=== PATIENT | male | born 1995 | race Hispanic/Latino ===

== ENCOUNTER 2018-06-29 12:25 | Emergency (ER) | payer SELFPAY ==
[2018-06-29 13:25] LABS: Bilirubin Negative (Negative); Blood, Urine Negative (Negative); Clarity CLEAR (Clear); Glucose, Urine (Dipstick) Negative (Negative); Leukocyte Negative (Negative); Nitrite Negative (Negative); Protein, Urine (Dipstick) Negative (Neg-Trace)
--- NOTE | 2018-06-29 13:40 | ULT ---
Testicular ultrasound INDICATION: Bilateral testicular pain TECHNIQUE: Grayscale, color Doppler spectral Doppler images were obtained of the scrotum. COMPARISON: None. FINDINGS: Right testicle: The right testicle measured 3.1 x 4.4 x 2.0cm. There is normal vascular flow to the r ight testicle No right-sided hydrocele is evident there is a 2 mm right epididymal head cyst. Left testicle: The left testicle measured 3.0 x 4.2 x 2.0cm. There is normal vascular flow to left te sticle. No left sided hydrocele seen. The left epididymis appears within normal limits. Additional findings: None. Impression: 1. No intratesticular mass or torsion demonstrated. 2. Small right epididymal head cyst.
[2018-06-30 20:09] LABS: Chlam.trachomatis by PCR,Urine Not Detected (NotDetected)
== END 2018-06-29 15:01 | disposition home or self-care (01) ==
LOC: ERS 12:25
DX: N50.812 Left testicular pain (principal); N50.811 Right testicular pain
CPT/HCPCS: 76870; 81003; 87086; 87491; 87591

== ENCOUNTER 2018-09-19 23:51 | Emergency (ER) | payer SELFPAY ==
[2018-09-20] MEDS ORDERED: Fluorescein Opthalmic Strip ONE (01:09)
[2018-09-20] MEDS ORDERED: Adacel (T-DAP) 0.5 ML SYRINGE ONE (01:10)
[2018-09-20] MEDS ORDERED: Proparacaine 0.5% Opth 15 ML BOT ONE (01:10)
== END 2018-09-20 01:57 | disposition home or self-care (01) ==
LOC: ERS 23:51
DX: T15.01XA Foreign body in cornea, right eye, initial encounter (principal)
CPT/HCPCS: 65220; 90471; 90715

== ENCOUNTER 2018-11-22 08:36 | Emergency (ER) | payer SELFPAY ==
[2018-11-22 09:00] LABS: Bacteria/HPF None Seen HPF (None Seen); Bilirubin Negative (Negative); Blood, Urine Negative (Negative); Clarity Clear (Clear); Glucose, Urine (Dipstick) Normal (Negative); Leukocyte Negative Leu/uL (Negative); Nitrite Negative (Negative); Protein, Urine (Dipstick) 30 mg/dL (Neg-Trace); RBC/HPF 0-3 HPF (0-3); Squamous Epithelial 0-3 HPF (0-3); Urobilinogen 3 mg/dL (Less than 2); WBC/HPF 0-3 HPF (0-3)
--- NOTE | 2018-11-22 09:47 | RAD ---
Exam: 3 views of the lumbosacral spine HISTORY: Low back pain COMPARISON: None FINDINGS: There are five lumbar type vertebra. No acute fracture or subluxation. IMPRESSION: No acute fracture or subluxation demonstrated.
[2018-11-22 10:05] LABS: #Lymphocytes 1.4 thou/uL (1.20-3.40); #Monocytes 0.4 thou/uL (0.11-0.59); #Neutrophils 3.6 thou/uL (1.40-6.50); %Basophils 0.3 % (0.0-1.0); %Eosinophils 0.9 % (0.0-10.0); %Lymphocytes 25.6 % (21.0-51.0); %Monocytes 6.8 % (0.0-10.0); %Neutrophils 66.5 % (42.0-75.0); Hemoglobin 15.2 g/dL (14.0-18.0); Mean Corpuscular Volume 82.4 fL (78.0-98.0); Mean Platelet Volume 7.6 fL (7.4-10.4); Platelet Count 245 thou/uL (130-400); RBC Distribution Width 12.3 % (11.5-14.5); Red Blood Cell (RBC) Count 5.43 mill/uL (4.70-6.10); White Blood Cell (WBC) Count 5.4 thou/uL (4.8-10.8)
--- NOTE | 2018-11-22 10:16 | ULT ---
Testicular ultrasound INDICATION: Left testicular pain TECHNIQUE: Grayscale, color Doppler spectral Doppler images were obtained of the scrotum. COMPARISON: None. FINDINGS: Right testicle: The right testicle measured 2.9 x 4.0 x 1.8 cm. There is normal vascular flow to the right testicle No right-sided hydrocele is evident There are 2 separate right epididymal head cyst. The largest measures 7 mm. Left testicle: The left testicle measured 2.6 x 1.9 x 4.9cm. There is normal vascular flow to left te sticle. No left sided hydrocele seen. There are 2 separate left epididymal head cysts. The largest measures 4.1 mm. Additional findings: None. Impression: 1. No evidence of testicular torsion or intratesticular mass. 2. Bilateral epididymal head cysts.
[2018-11-22 10:24] LABS: ALT (SGPT) 16 U/L (8-55); AST (SGOT) 15 U/L (5-34); Albumin 4.3 g/dL (3.5-5.0); Alkaline Phosphatase 61 U/L (40-110); Anion Gap 12 mmol/L (10-20); BUN (Urea Nitrogen) 13 mg/dL (8.9-20.6); Bilirubin, Total 0.5 mg/dL (0.2-1.2); Calc. Creatinine Clearance 0 mL/min (70-130); Calcium 9.1 mg/dL (7.8-10.44); Carbon Dioxide 22 mmol/L (22-29); Chloride 106 mmol/L (98-107); Estimated GFR-MDRD Greater than 90; Globulin 2.9 g/dL (2.4-3.5); Glucose 97 mg/dL (70-105); Potassium 3.8 mmol/L (3.5-5.1); Protein, Total 7.2 g/dL (6.0-8.3); Sodium 136 mmol/L (136-145)
[2018-11-22] MEDS ORDERED: Acetaminophen 500 MG TAB ONE (10:35)
--- NOTE | 2018-11-22 11:32 | MRI ---
MR the lumbar spine without contrast INDICATION: Lumbar radiculopathy COMPARISON: Lumbar spine radiograph dated November 22, 2018 TECHNIQUE: Multiplanar multisequence MR images were obtained of lumbar spine without IV contrast. FINDINGS: Bone marrow: Bone marrow signal intensity appears within normal limits. Distal spinal cord and conus: Normal. The conus seen to terminate at L1. Visualized retroperitoneum and paraspinal soft tissues: Normal. Vertebral levels: L5-S1: There is a mild broad-based bulge with mild neural foraminal encroachment but no appreciable i mpingement. L4-5: There is a mild broad-based bulge with a superimposed central annular fissure measuring 9 mm. N o appreciable central canal or neural foraminal narrowing is evident. L3-4: No appreciable central canal or neuroforaminal narrowing. L2-3: No appreciable central canal or neuroforaminal narrowing. L1-L2: No appreciable central canal or neuroforaminal narrowing. T12-L1: No appreciable central canal or neuroforaminal narrowing. IMPRESSION: 1. Mild spondylosis of the lumbar spine without appreciable central canal narrowing. 2. Mild neural foraminal encroachment at L5-S1.
== END 2018-11-22 12:00 | disposition home or self-care (01) ==
LOC: ERS 08:36
DX: M54.5 Low back pain (principal); N50.812 Left testicular pain; N50.811 Right testicular pain
CPT/HCPCS: 36415; 72100; 72148; 76870; 80053; 81003; 81015; 85025; 93976

== ENCOUNTER 2019-11-27 11:25 | Emergency (ER) | payer SELFPAY | END 2019-11-27 13:53 | disposition home or self-care (01) | LOC: ERS 11:25 | DX: J02.9 Acute pharyngitis, unspecified (principal) | CPT/HCPCS: 87081; 87430; 99284 ==

== ENCOUNTER 2019-12-17 17:51 | Emergency (ER) | payer SELFPAY | END 2019-12-17 19:24 | disposition home or self-care (01) | LOC: ERS 17:51 | DX: J00 Acute nasopharyngitis [common cold] (principal); J35.8 Other chronic diseases of tonsils and adenoids | CPT/HCPCS: 87081; 87430; 99283 ==